=== PATIENT | female | born 1985 ===

== ENCOUNTER 2022-04-24 02:06 | Emergency (ER) | payer SELFPAY ==
[2022-04-24] MEDS ORDERED: Ondansetron 4 MG Tab.DIS PO ONE (03:53)
== END 2022-04-24 04:27 | disposition home or self-care (01) ==
LOC: DL.ED 02:06
DX: F12.90 Cannabis use, unspecified, uncomplicated (principal)
CPT/HCPCS: 99281; 99282; A9270-GY